=== PATIENT | female | born 1985 | race Asian ===

== ENCOUNTER 2017-07-23 22:05 | Emergency (ER) | payer OTHER ==
[~2017-07-23] VITALS: Ht 160 cm; Wt 87.6 kg
[~2017-07-23 22:05] MED LIST: ATARAX,VISTARIL25 MG PO; FLEXERIL5 MG PO; Motrin PO; NOHOMEMEDS; NORCO 5/3251 TABLET PO; PREDNISONE10 M1 PO; PRENATAL1 EACH PO; PREVACID30 MG PO; Percocet 5/325,Endoc PO; SKELAXIN800 MG PO; SYNTHROID100 MCG PO; ULTRAM50 MG PO; ZOFRAN4 MG PO
[2017-07-23 22:46] LABS: APPEARANCE SL.HAZY ((CLEAR)); BILIRUBIN NEGATIVE; BLOOD SMALL; COLOR YELLOW ((YELLOW)); GLUCOSE (STRIP) NEGATIVE; KETONES NEGATIVE; LEUKOCYTES NEGATIVE; NITRITE NEGATIVE; PROTEIN (STRIP) NEGATIVE; UROBILINOGEN 0.2 MG/DL (0.2-1.0)
[2017-07-23 22:51] LABS: BACTERIA NONE SEEN /HPF; EPITHELIAL CELLS 1+ /HPF; MUCUS 2+ /LPF; RED BLOOD CELLS 0-5 /HPF (0-5); UCUL ADDED? NO; WHITE BLOOD CELLS 0-5 /HPF (0-5)
[2017-07-23 23:07] LABS: HEMATOCRIT 38.9 % (36.0-46.0); HEMOGLOBIN 13.1 G/DL (11.9-15.5); MCH 29.9 PG (29.0-34.0); MCHC 33.7 G/DL (30.0-36.0); MCV 88.8 FL (83-99); RBC DIS.WIDTH-CV 12.7 % (11.8-14.6); RBC DIS.WIDTH-SD 41.5 % (39-53); RED BLOOD COUNT 4.38 M/uL (3.80-5.20); WHITE BLOOD COUNT 7.9 K/uL (4.1-10.2)
[2017-07-23 23:16] LABS: ALBUMIN 4.2 g/dL (3.2-4.8)
[2017-07-23 23:17] LABS: CHLORIDE 104 mEq/L (99-109); SODIUM 139 mEq/L (136-147)
[2017-07-23 23:19] LABS: GLUCOSE 105 mg/dL (70-99); TOTAL PROTEIN 7.8 g/dL (6.4-8.3)
[2017-07-23 23:21] LABS: TOTAL BILIRUBIN 0.5 mg/dL (0.0-1.0)
[2017-07-23 23:22] LABS: ALKALINE PHOSPHATASE 90 IU/L (3-129)
[2017-07-23 23:23] LABS: CREATININE 0.9 mg/dL (0.6-1.3); GFR ESTIMATE (CALCULATED) > 59 mL/min/
[2017-07-23 23:24] LABS: AST (GOT) 14 IU/L (2-34); UREA NITROGEN (BUN) 10 mg/dL (9-23)
[2017-07-23 23:25] LABS: ALT (GPT) 15 IU/L (3-49)
[2017-07-23 23:33] LABS: QUANTITATIVE HCG < 4.0 MIU/ML
[2017-07-24 01:31] LABS: PLAT.SUFFICIENCY ADEQUATE; PLATELET COUNT 244 K/uL (156-360)
[2017-07-24 02:25] VITALS: BP 115/65
== END 2017-07-24 02:27 | disposition home or self-care (01) ==
LOC: EME 22:05
DX: G43.909 Migraine, unspecified, not intractable, without status migrainosus (principal)
CPT/HCPCS: 80053; 81003; 84702; 85027; 99281; 99284; J1200; J2765; J7030